=== PATIENT | male | born 1960 | race Caucasian/White ===

== ENCOUNTER 2022-12-27 13:04 | Outpatient (CLI) | payer BC ==
--- NOTE | 2022-12-27 17:27 | XRAY Report ---
PROCEDURE: Hip w/Pelvis 2-3V RT INDICATIONS: HIP PAIN TECHNIQUE: AP pelvis with lateral view(s) of the right hip(s). COMPARISON: None. FINDINGS: Bones: No fractures or dislocations. Degenerative changes of both hips consistent with osteoarthrit is. Joint space narrowing bilaterally, worse on the right hip which has subchondral sclerosis and sub chondral cystic changes. No suspicious bony lesions. Soft tissues: No suspicious soft tissue calcifications or masses. IMPRESSION: Osteoarthritis of the right hip. Reviewed by: Rodger Tatum on 12/27/2022 5:26 PM PDT Approved by: Rodger Tatum on 12/27/2022 5:26 PM PDT Station ID: [id number]
== END 2022-12-27 13:05 | disposition home or self-care (01) ==
LOC: DI 13:04
PROVIDERS: ATTEND Student in an Organized Health Care Education/Training Program
DX: M16.11 Unilateral primary osteoarthritis, right hip (principal)